=== PATIENT | male | born 1970 | race Caucasian/White ===

== ENCOUNTER → 2021-08-21 12:29 | Outpatient (BNVA) | payer BC, SELFPAY | PROVIDERS: Family Provider Nurse Practitioner Family; PCP Family Medicine; Visit Provider Nurse Practitioner Family | DX: I10 Essential (primary) hypertension (principal); R63.1 Polydipsia; Z79.899 Other long term (current) drug therapy; E55.9 Vitamin D deficiency, unspecified | CPT/HCPCS: 80053; 80061; 81003; 82306; 83036; 84443; 85025 ==

== ENCOUNTER → 2023-04-15 15:10 | Outpatient (BNVA) | payer OTHER, BC, SELFPAY | PROVIDERS: Family Provider Nurse Practitioner Family; PCP Family Medicine; Visit Provider Family Medicine | DX: S69.92XA Unspecified injury of left wrist, hand and finger(s), initial encounter (principal); X58.XXXA Exposure to other specified factors, initial encounter | CPT/HCPCS: 73120 ==

== ENCOUNTER 2024-05-25 14:05 | Outpatient (CLI) | payer BC, SELFPAY ==
--- NOTE | 2024-05-25 14:12 | XR_ITS ---
WS: [id number] XR shoulder LT min 2V* [id number] REASON FOR EXAM: M75.81 - Other shoulder lesions, left shoulder FINDINGS: No fracture or focal bone lesion. Mild to moderate narrowing of the acromioclavicular joint space with mild subchondral sclerosis and o steophytosis. The glenohumeral joint space is not optimally visualized. There may be mild narrowing of the joint sp eva with minimal subchondral sclerosis of the glenoid. There are no significant subarticular changes in the humeral head. There is moderate to significant sclerosis and cystic change in the greater biceps tuberosity. XR/XR shoulder LT min 2V* [id number] IMPRESSION: Mild osteoarthritis in the acromioclavicular and glenohumeral joints. Moderate to significant rotator cuff tendon arthropathy.
--- NOTE | 2024-05-25 14:12 | XR_ITS ---
WS: [email or web address] XR shoulder RT min 2V* [id number] REASON FOR EXAM: M75.81 - Other shoulder lesions, right shoulder FINDINGS: No fracture or focal bone lesion. Significant narrowing of the acromioclavicular joint space with moderate subchondral sclerosis and os teophytosis. The glenohumeral joint is not well demonstrated but does not appear to be significantly narrowed. There is significant sclerosis and cystic change in the greater biceps tuberosity. No soft tissue abnormality. XR/XR shoulder RT min 2V* [id number] IMPRESSION: Moderate osteoarthritis in the acromioclavicular joint. No significant abnormality of the glenohumeral joint. Significant rotator cuff tendon arthropathy.
--- NOTE | 2024-05-25 14:12 | XR_ITS ---
WS: [email or web address] XR cervical spine 3V* [id number] REASON FOR EXAM: M75.81 - Other shoulder lesions, right shoulder FINDINGS: Due to the patient's body habitus the cervical spine was not diagnostically imaged below C6 on the la teral views. There is straightening of the normal lordosis of the cervical spine. The intervertebral disc spaces are intact and relatively well preserved. On the AP view the C7 vertebral body and C6-C7 disc space appear normal. XR/XR cervical spine 3V* [id number] IMPRESSION: No significant abnormality as above.
== END 2024-05-25 14:06 | disposition home or self-care (01) ==
PROVIDERS: PCP Nurse Practitioner Family; Visit Provider Nurse Practitioner Family
DX: M19.011 Primary osteoarthritis, right shoulder (principal); M19.012 Primary osteoarthritis, left shoulder; M75.22 Bicipital tendinitis, left shoulder; M75.102 Unspecified rotator cuff tear or rupture of left shoulder, not specified as traumatic; M75.101 Unspecified rotator cuff tear or rupture of right shoulder, not specified as traumatic
CPT/HCPCS: 72040; 73030

== ENCOUNTER → 2024-09-29 10:21 | Outpatient (BNVA) | payer BC, SELFPAY | PROVIDERS: PCP Nurse Practitioner Family; Visit Provider Nurse Practitioner Family | DX: G89.29 Other chronic pain; M25.561 Pain in right knee | CPT/HCPCS: 73562 ==

== ENCOUNTER → 2024-10-13 10:03 | Outpatient (BNVA) | payer BC, SELFPAY | PROVIDERS: PCP Nurse Practitioner Family; Visit Provider Physician Assistant | DX: G89.29 Other chronic pain; M17.11 Unilateral primary osteoarthritis, right knee; M23.305 Other meniscus derangements, unspecified medial meniscus, unspecified knee; M25.561 Pain in right knee; M25.562 Pain in left knee | CPT/HCPCS: 73560; 73565 ==

== ENCOUNTER → 2024-12-09 08:22 | Outpatient (BNVA) | payer BC, SELFPAY | PROVIDERS: PCP Nurse Practitioner Family; Visit Provider Nurse Practitioner Family | DX: R05.9 Cough, unspecified (principal); J06.9 Acute upper respiratory infection, unspecified | CPT/HCPCS: 87400; 87426; 87880 ==

== ENCOUNTER → 2025-05-12 08:45 | Outpatient (BNVA) | payer BC, SELFPAY | PROVIDERS: PCP Nurse Practitioner Family; Visit Provider Internal Medicine Cardiovascular Disease | DX: R07.9 Chest pain, unspecified (principal) | CPT/HCPCS: 93005 ==

== ENCOUNTER → 2025-05-26 09:47 | Outpatient (BNVA) | payer BC, SELFPAY | PROVIDERS: PCP Nurse Practitioner Family; Visit Provider Nurse Practitioner Family | DX: J32.9 Chronic sinusitis, unspecified (principal) | CPT/HCPCS: 87400; 87426 ==

== ENCOUNTER 2025-05-27 15:09 | Outpatient (CLI) | payer BC, SELFPAY ==
--- NOTE | 2025-05-27 15:45 | CT_ITS ---
WS: [id number] CT CALCIUM SCORE REASON FOR VISIT: chest pain; Coronary artery disease risk assessment COMPARISON: None TECHNIQUE: Noncontrast coronary CT in combination with quantitative analysis performed on a separate workstation were used to determine CACS (Agatston score) TOTAL EXAM DOSE: 104.76 mGy.cm ECG GATING: Prospective SCAN RANGE: Pulmonary artery bifurcation to Inferior aspect of heart COMPLICATIONS: None FINDINGS: Technical Quality/Examination Quality: Good Limitaiton: None OVERALL SCORES Total calcium score: 98 Total volume score: 130 mm3 Percentile: 50th-75th% ARTERY SCORES Left main coronary artery: 0 Left anterior descending artery: 0 Left circumflex artery: 93 Right coronary artery: 5 OTHER FINDINGS: Mediastinum: Normal. Thoracic aorta: Normal. Lungs: 3 mm noncalcified nodule LEFT upper lobe along the mediastinum Upper Abdomen: Small esophageal hiatal hernia MINIMAL: 1-10 MILD: 11-100 MODERATE: 101-400 SEVERE:>400 CT/CT heart w calcium score [id number] IMPRESSION: Total calcium score of 98 is between the 50th and 75th percentile f or males between the ages of 50 and 54 GRADING OF CORONARY ARTERY DISEASE (BASED ON TOTAL CALCIUM SCORE) NO EVIDENCE OF CAD: 0 calcium score
== END 2025-05-27 15:10 | disposition home or self-care (01) ==
LOC: RAD 15:11
PROVIDERS: PCP Nurse Practitioner Family; Visit Provider Internal Medicine Cardiovascular Disease
DX: R07.9 Chest pain, unspecified (principal); R91.1 Solitary pulmonary nodule; K44.9 Diaphragmatic hernia without obstruction or gangrene
CPT/HCPCS: 75571

== ENCOUNTER 2025-06-01 07:39 | Outpatient (CLI) | payer BC, SELFPAY ==
--- NOTE | 2025-06-01 08:00 | MR_ITS ---
WS: [id number] MRI RIGHT KNEE NONCONTRAST TECHNIQUE: Axial PD, coronal PD fat sat, coronal PD, sagittal PD, and sagittal PD fat-sat images obtained. CLINICAL INFORMATION: derangment of right knee COMPARISON: None. FINDINGS: Distal quadriceps and patella tendons are intact. Hypertrophic patella. Moderate to advanced tricompartmental arthritis advanced for patient this age. ACL and PCL appear intact. Horizontal tear medial meniscus extending to the articular surface. Blunting of the posterior horn. Associated meniscal root tear involving the posterior horn medial meniscus. Meniscal fragment along the intercondylar fossa. Lateral meniscus appears intact. Bilobed lobulated popliteal cyst measuring 4.7 x 1.2 cm. Grade IV chondromalacia patella. Medial and lateral patellar retinaculum appear intact. Normal medial and lateral collateral ligaments. Grade III chondromalacia in the medial and lateral joint compartments. Fibula head appears normal. MR/MR knee RT wo con* [id number] IMPRESSION: 1. ACL and PCL appear intact. 2. Moderate to advanced tricompartment arthritis advanced for patient this age . 3. Complex tears involving the medial meniscus with a horizontal tear as well as a meniscal root tear involving the posterior horn medial meniscus. Small men iscal fragment extending along the intercondylar fossa 4. Grade IV chondromalacia patella. 5. Grade III chondromalacia medial and lateral joint compartments. 6. Bilobed lobulated popliteal cyst measuring 4.8 x 1.2 cm Outbridge grading: grade IV: full-thickness cartilage loss with underlying bone reactive changes
== END 2025-06-01 07:40 | disposition home or self-care (01) ==
LOC: RAD 07:45
PROVIDERS: PCP Nurse Practitioner Family; Visit Provider Physician Assistant
DX: M17.11 Unilateral primary osteoarthritis, right knee (principal); M23.305 Other meniscus derangements, unspecified medial meniscus, unspecified knee; M25.569 Pain in unspecified knee; G89.29 Other chronic pain
CPT/HCPCS: 73721

== ENCOUNTER → 2025-06-08 09:21 | Outpatient (BNVA) | payer BC, SELFPAY | PROVIDERS: PCP Nurse Practitioner Family; Visit Provider Nurse Practitioner Family | DX: R50.9 Fever, unspecified (principal) | CPT/HCPCS: 87400; 87426 ==

== ENCOUNTER 2025-06-15 12:19 | Outpatient (CLI) | payer BC, SELFPAY | END 2025-06-15 12:20 | disposition home or self-care (01) | LOC: SPT 12:20 | PROVIDERS: PCP Family Medicine; Visit Provider Student in an Organized Health Care Education/Training Program | DX: Z46.89 Encounter for fitting and adjustment of other specified devices (principal); M25.461 Effusion, right knee; M17.0 Bilateral primary osteoarthritis of knee | CPT/HCPCS: L1812; L1851 ==

== ENCOUNTER 2025-08-19 10:10 | Day surgery (SDC) | payer BC, SELFPAY ==
--- NOTE | 2025-08-18 13:24 | SUR.PREOP ---
Patient changed the date of when he took his last dose of monjouro during our telephone preop after mentioning to him the medication has to be held for 7 days prior to surgery. After discussing with Dr Jones the patient was called back and explained the medical reasoning for holding the medication. Patient was asked again if he for sure held the medication more that 7 days and he confirmed that yes he took the medication not last saturday, but the saturday before that. Patient acknowledged the risks and confirmed the date he stated was correct. Witness to conversation on phone with patient was TERESA Ghosh and Heidi, Pipe Wrapping Machine Operator.
[2025-08-19 11:03] VITALS: BP 128/78; PULSE 90; RESP 18; TEMP 36.8; O2SAT 99
[2025-08-19 11:06] VITALS: BMI 35.6
[2025-08-19] MEDS: acetaminophen 1,000 MG/100 ML PIGGYBACK 400 MG IV (11:24)
--- NOTE | 2025-08-19 11:54 | ECG_ITS ---
[employer] Test Date: 2025-08-19 Pat Name: Sandoval Gray Department: Room: Gender: Male Director Consumer: : 1970 Requested By: Griselda Jones Order Number: [id number] Bautista MD: Christopher Drake M.D. Measurements Intervals [place] Rate: 86 P: 0 CA: 0 QRS: -15 QRSD: 99 T: -10 QT: 373 QTc: 447 Interpretive Statements ATRIAL FIBRILLATION MODERATE VOLTAGE CRITERIA FOR LVH, CONSIDER NORMAL VARIANT [MEETS CRITERIA IN ONE OF: R(aVL), S(V1), R(V5), R(V5/V6)+S(V1)] POSSIBLE SEPTAL MYOCARDIAL INFARCTION , PROBABLY OLD [30 ms Q WAVE IN V1/V2] ABNORMAL RHYTHM ECG Compared to ECG 05/12/2025 08:59:10 Myocardial infarct finding now present Sinus rhythm no longer present Sinus arrhythmia no longer present T-wave abnormality no longer present Electronically Signed On 08-20-2025 18:57:24 MOTOR RACER by Christopher Drake M.D. [email or web address]
--- NOTE | 2025-08-19 12:50 | PC.NURSE ---
1245: pt cancelled per anesthesia and surgeon r/t ekg findings: new onset AFIB
--- NOTE | 2025-08-19 13:02 | PM.MISC ---
Miscellaneous Note Note: Patient currently wearing cardiac event monitor because his pharmaceutical analyst in [place] said they saw a fib on his EKG and wanted to start him on anticoagulation. EKG today does reveal new-onset a fib. Due to cardiac condition currently being worked up and new-onset a fib, will reschedule until patient has appropriate clearance from cardiology in light of findings.
== END 2025-08-19 11:40 | disposition home or self-care (01) ==
PROVIDERS: PCP Family Medicine; Visit Provider Student in an Organized Health Care Education/Training Program
PROC: (CPT 29870; principal; 2025-08-19 12:00)
DX: Z53.8 Procedure and treatment not carried out for other reasons (principal)
CPT/HCPCS: 93005; J0131; J1885; J2250; J2704; J3010; J7030; J9999